=== PATIENT | male | born 2000 | race Caucasian/White ===

== ENCOUNTER 2019-12-24 14:55 | Emergency (ER) | payer OTHER ==
[~2019-12-24] VITALS: Ht 182.9 cm; Wt 100.6 kg
[2019-12-24 14:56] VITALS: BP 142/98
[2019-12-24] MEDS ORDERED: ear drops (15:02)
[2019-12-24] MEDS ORDERED: AUGM875T28 PO (16:06)
[2020-01-01] MEDS ORDERED: OXYC1TAB23 PO (11:47)
== END 2019-12-24 16:19 | disposition home or self-care (01) ==
LOC: M ED 14:55
DX: H61.22 Impacted cerumen, left ear (principal); H72.92 Unspecified perforation of tympanic membrane, left ear

== ENCOUNTER 2020-01-04 06:12 | Day surgery (SDC) | payer OTHER ==
[~2020-01-04] VITALS: Ht 182.9 cm; Wt 102.1 kg
[~2020-01-04 06:12] MED LIST: AUGM875T28 PO; OXYC1TAB23 PO; ear drops
[2020-01-04] MEDS ORDERED: ONDANSETRON 4MG/2ML VIAL As Ordered ONE (07:11)
[2020-01-04] MEDS ORDERED: propofoL 200 MG/20 ML VIAL As Ordered ONE ×2 (07:11→07:12)
[2020-01-04] MEDS ORDERED: LIDOCAINE 2% 100MG/5ML SDV (FOR ANES.) As Ordered ONE (07:11)
[2020-01-04] MEDS ORDERED: dexameTHASONE 4 MG/ML 1ML VIAL (J1100 PER 1MG) As Ordered ONE (07:11)
[2020-01-04] MEDS ORDERED: MIDAZOLAM INJ 2MG/2ML VIAL (J2250 PER 1MG) As Ordered ONE (07:15)
[2020-01-04] MEDS ORDERED: fentaNYL 100 MCG/2 ML INJECTION (J3010) As Ordered ONE (07:15)
[2020-01-04] MEDS ORDERED: CIPRODEX OTIC SUSP 7.5ML As Ordered ONE (07:17)
[2020-01-04] MEDS ORDERED: PERCOCET 5MG/325MG TAB As Ordered ONE (08:12)
[2020-01-04] MEDS ORDERED: ONDANSETRON 4MG/2ML VIAL IV PRN (08:30)
[2020-01-04] MEDS ORDERED: METOCLOPRAMIDE INJ 10MG/2ML VIAL (J2765 PER 1) IV PRN (08:30)
[2020-01-04] MEDS ORDERED: PERCOCET 5MG/325MG TAB PO PRN ×2 (08:30→08:45)
[2020-01-04] MEDS ORDERED: MEPERIDINE INJ 25 MG/ML VIAL (J2175) IV PRN (08:30)
[2020-01-04] MEDS ORDERED: fentaNYL 100 MCG/2 ML INJECTION (J3010) IV PRN (08:30)
[2020-01-04] MEDS ORDERED: LR 1,000 ML IV SCH (08:30)
[2020-01-04] MEDS ORDERED: IBUPROFEN 800 MG TAB PO PRN (08:45)
[2020-01-04 09:00] VITALS: BP 120/60
== END 2020-01-04 09:30 | disposition home or self-care (01) ==
LOC: M SDC 06:12
PROVIDERS: ATTEND Specialist
DX: H60.42 Cholesteatoma of left external ear (principal)
CPT/HCPCS: 69145; 88304; J1100; J2250; J2405; J3010